=== PATIENT | female | born 1930 | race Caucasian/White ===

== ENCOUNTER 2016-07-10 11:50 | Outpatient (CLI) | payer OTHER | END 2016-07-10 20:14 | disposition home or self-care (01) | LOC: SRD 11:50 | PROVIDERS: ATTEND Preventive Medicine Preventive Medicine/Occupational Environmental Medicine | DX: G31.9 Degenerative disease of nervous system, unspecified (principal); R56.9 Unspecified convulsions; R55 Syncope and collapse | CPT/HCPCS: 70551 ==